=== PATIENT | female | born 2000 | race Caucasian/White ===

== ENCOUNTER 2023-07-13 18:03 | Inpatient (IN) ==
[2023-07-13] MEDS ORDERED: Dinoprostone 10 MG VAG.SUPP VAGINAL ONE (18:59)
[2023-07-13] MEDS ORDERED: Buffered Lidocaine 1% SYRIN 1 ml INTRADERM ONE (19:29)
[2023-07-13 20:22] LABS: Urine Benzodiazepine Screen None Detected (None Detect); Urine Cannabinoids Screen None Detected (None Detect); Urine Opiates Screen None Detected (None Detect)
[2023-07-14 09:39] LABS: ABS Lymphocytes 1.4 10^3/uL (1.0-4.8); ABS Neutrophils 11.7 10^3/uL (1.5-7.6); ABS Nucleated RBC 0.01 10^3/ul; Eosinophil % 0.3 %; Hematocrit 40.8 % (35-45); Hemoglobin 14.1 g/dL (11.5-14.3); Lymphocyte % 9.9 %; Mean Corpuscular Hemoglobin 32.5 pg (27-33); Mean Corpuscular Hgb Conc 34.5 g/dL (31-36); Mean Corpuscular Volume 94.3 fL (80-97); Mean Platelet Volume 7.8 fL (7.5-11.2); Platelet Count 318 10^3/uL (150-450); Red Blood Count 4.32 10^6/uL (3.63-4.92); Red Cell Distribution Width 12.3 % (12-17); White Blood Count 14.3 10^3/uL (3.8-11.8)
[2023-07-14] MEDS ORDERED: Lidocaine 1% VIAL 10 MG/ML 30 ML VIAL INJ PRN (10:07)
[2023-07-14] MEDS ORDERED: Nalbuphine 10 MG/ML 1 ML VIAL IV PRN (10:07)
[2023-07-14] MEDS ORDERED: Lactated Ringers 1000 ml BAG 1,000 ML IV ONE ×2 (10:07→13:17)
[2023-07-14] MEDS ORDERED: Buffered Lidocaine 1% SYRIN 1 ml INTRADERM ONE (10:07)
[2023-07-14] MEDS ORDERED: Penicillin G Potassium IV 5,000,000 UNITS in NS 0.9% 100 ml BAG 100 ML IVPB ONE (11:32)
[2023-07-14] MEDS ORDERED: Oxytocin in LR 20,000 MILLI.UNIT/1,000 ML BAG IV SCH (11:35)
[2023-07-14] MEDS: Lactated Ringers 1000 ml BAG 1,000 ML IV SCH ×3 (12:01→21:19)
[2023-07-14] MEDS ORDERED: OBEPIDURAL (200 ML) 200 ML EPIDURAL ONE (12:20)
[2023-07-14] MEDS ORDERED: Lidocaine 1.5% EPI 1:200,000 30 ML SDV ONE (12:21)
[2023-07-14] MEDS ORDERED: Phenylephrine 40 mcg/mL 10mL (400mcg) SYRINGE IV PUSH PRN ×2 (13:17)
[2023-07-14] MEDS ORDERED: Sodium Citrate/Citric Acid LIQ 15 ML UDC PO PRN (13:17)
[2023-07-14] MEDS ORDERED: Lactated Ringers 1000 ml BAG 1,000 ML IV SCH (14:00)
[2023-07-14] MEDS ORDERED: OBEPIDURAL (200 ML) 200 ML EPIDURAL SCH (14:00)
[2023-07-14 14:21] LABS: Urine Appearance Clear; Urine Bilirubin Negative (Negative); Urine Blood Negative (Negative); Urine Color Yellow; Urine Glucose Negative (Negative); Urine Ketones Negative (Negative); Urine Nitrite Negative (Negative); Urine Protein Negative (Negative); Urine Specific Gravity 1.009 (1.002-1.030); Urine Urobilinogen Negative (Negative)
[2023-07-14] MEDS: Penicillin G Potassium IV 3,000,000 UNITS in NS 0.9% 100 ml BAG 100 ML IVPB SCH ×2 (18:27→22:21)
[2023-07-15] MEDS ORDERED: Glycerin ADULT 2.4 gm SUPP PR PRN (00:15)
[2023-07-15] MEDS ORDERED: Oxytocin in LR 20,000 MILLI.UNIT/1,000 ML BAG IV SCH (00:15)
[2023-07-15] MEDS ORDERED: Lactated Ringers 1000 ml BAG 1,000 ML IV SCH (01:00)
[2023-07-15] MEDS: Witch Hazel PAD JAR TOPICAL PRN (01:23)
[2023-07-15] MEDS: Dibucaine 1% OINT 28.35 GM TUBE PR PRN ×2 (01:23→11:12)
[2023-07-16 07:02] LABS: ABS Basophils 0.1 10^3/uL (0.0-0.1); ABS Eosinophils 0.2 10^3/uL (0.0-0.5); ABS Lymphocytes 2.5 10^3/uL (1.0-4.8); ABS Monocytes 1.3 10^3/uL (0.0-0.9); Eosinophil % 1.2 %; Hematocrit 33.9 % (35-45); Hemoglobin 11.5 g/dL (11.5-14.3); Lymphocyte % 17.8 %; Mean Corpuscular Hemoglobin 32.7 pg (27-33); Mean Corpuscular Hgb Conc 34.1 g/dL (31-36); Mean Corpuscular Volume 95.9 fL (80-97); Mean Platelet Volume 7.7 fL (7.5-11.2); Platelet Count 285 10^3/uL (150-450); Red Blood Count 3.53 10^6/uL (3.63-4.92); Red Cell Distribution Width 12.4 % (12-17)
[2023-07-17 08:09] VITALS: BP 109/57
[2023-07-17] MEDS ORDERED: Measles, Mumps,Rubella VACC 0.5 ML/VIAL SUBCUT ONE (10:20)
[2023-07-17] MEDS: Witch Hazel PAD JAR TOPICAL PRN (11:43)
== END 2023-07-17 11:55 | disposition home or self-care (01) | DRG 807 ==
LOC: MCHOBOUT 18:03 → MCHOB 07-14 10:03
PROVIDERS: ADMIT Obstetrics & Gynecology; ATTEND Obstetrics & Gynecology